=== PATIENT | male | born 1935 | race Caucasian/White ===

== ENCOUNTER 2019-10-08 06:15 | Day surgery (SDC) | payer OTHER, SELFPAY ==
[~2019-10-08] VITALS: Ht 162.6 cm; Wt 63.0 kg
[2019-10-08] MEDS ORDERED: MIDAZOLAM 2 MG/2 ML VIAL ONE ×2 (07:33→07:34)
[2019-10-08] MEDS ORDERED: fentaNYL 0.05 MG/ML VIAL ONE (07:34)
[2019-10-08] MEDS ORDERED: LIDOCAINE VISCOUS 2% 20 ML UDC ONE (07:34)
[2019-10-08] MEDS ORDERED: MIDAZOLAM 2 MG/2 ML VIAL IVP ONE (09:00)
[2019-10-08] MEDS ORDERED: fentaNYL 0.05 MG/ML VIAL IVP ONE (09:00)
== END 2019-10-08 09:20 | disposition home or self-care (01) ==
LOC: MMU 06:15 → MDS 06:15
PROVIDERS: ATTEND Internal Medicine Gastroenterology
DX: R13.10 Dysphagia, unspecified (principal); K20.0 Eosinophilic esophagitis; K44.9 Diaphragmatic hernia without obstruction or gangrene; Z79.899 Other long term (current) drug therapy; Z11.59 Encounter for screening for other viral diseases
CPT/HCPCS: 43239; 43248; 88305; J2250; J3010; U0003